=== PATIENT | female | born 1985 ===

== ENCOUNTER 2022-06-05 08:43 | Outpatient (CLI) | payer BC, SELFPAY ==
[2022-06-05 15:16] LABS: Cholesterol* 250 mg/dL (90-199)
[2022-06-05 15:17] LABS: LDL Cholesterol Calculated 150 mg/dL (<100)
[2022-06-05 15:19] LABS: HDL Cholesterol* 63 mg/dL (>=50); Triglycerides* 183 mg/dL (40-149)
[2022-06-05 22:07] LABS: Chloride* 104 mmol/L (96-114); Potassium* 5.1 mmol/L (3.6-5.1); Sodium* 142 mmol/L (135-149)
[2022-06-05 22:10] LABS: Carbon Dioxide* 28 mmol/L (20-32); Creatinine* 0.7 mg/dL (0.5-1.5); Estimated Glomerular Filt Rate 116 ml/min
[2022-06-05 22:11] LABS: Blood Urea Nitrogen* 12 mg/dL (5-24); Glucose* 95 mg/dL (60-115)
== END 2022-06-05 08:44 | disposition home or self-care (01) ==
PROVIDERS: PCP Emergency Medicine; Visit Provider Emergency Medicine
DX: E78.1 Pure hyperglyceridemia (principal); I10 Essential (primary) hypertension
CPT/HCPCS: 80048; 80061